=== PATIENT | female | born 1995 | race Caucasian/White ===

== ENCOUNTER 2017-11-25 19:04 | Emergency (ER) | payer OTHER ==
[2017-11-25 19:59] VITALS: TEMP 98.3
[2017-11-25] MEDS ORDERED: Iohexol 240 (50 ml) PO ONE (21:13)
[2017-11-25] MEDS ORDERED: Sodium Chloride 0.9% 1,000 ML IV STA (21:13)
--- NOTE | 2017-11-25 21:16 | ED PDOC ---
HPI: Abdomen Time Seen by Provider: 11/25/17 21:06 Chief Complaint (Nursing): Abdominal Pain Chief Complaint (Provider): abdominal pain History Per: Patient History/Exam Limitations: no limitations Onset/Duration Of Symptoms: Days (10), Waxing/Waning Current Symptoms Are (Timing): Still Present Location Of Pain/Discomfort: RLQ, LLQ, Suprapubic Quality Of Discomfort: Cramping Additional Complaint(s): 22 y/o female presents for evaluation of intermittent lower abdominal cramping x 10 days. Patient states she was seen at an Urgent Care and had blood work and and abdomen/pelvis ultrasound which showed some free fluid in the pelvis which she was told could have been a ruptured cyst. Patient states pain persists, with associated fever 3 day ago, and pale color stool today and when she told the doctor she was still having pain they said she should come to the ED for further evaluation. Denies headache, dizziness, nausea/vomiting, cough, congestion, chest pain, shortness of breath, urinary symptoms, vaginal bleeding/ discharge, recent travel, sick contacts. Past Medical History Reviewed: Historical Data, Nursing Documentation, Vital Signs Vital Signs: Last Vital Signs Temp 98.3 F 11/25/17 19:51 Pulse 84 11/25/17 19:51 Resp 18 11/25/17 19:51 BP 119/95 H 11/25/17 19:51 Pulse Ox 98 11/26/17 01:02 - Medical History PMH: No Chronic Diseases - Surgical History Surgical History: No Surg Hx - Family History Family History: States: No Known Family Hx - Living Arrangements Living Arrangements: With Family - Home Medications Home Medications: Ambulatory Orders Medication Instructions Recorded Polyethylene Glycol 3350 [Miralax] 17 gm PO DAILY PRN #7 [email or web address] 11/26/17 - Allergies Allergies/Adverse Reactions: Allergies Allergy/AdvReac Type Severity Reaction Status Date / Time No Known Allergies Allergy Verified 11/25/17 19:59 Review of Systems ROS Statement: Except As Marked, All Systems Reviewed And Found Negative Gastrointestinal: Positive for: Abdominal Pain Physical Exam - Reviewed Nursing Documentation Reviewed: Yes Vital Signs Reviewed: Yes - Physical Exam Appears: Positive for: Well, Non-toxic, No Acute Distress Head Exam: Positive for: ATRAUMATIC, NORMAL INSPECTION, NORMOCEPHALIC Skin: Positive for: Normal Color Eye Exam: Positive for: Normal appearance ENT: Positive for: Normal ENT Inspection Cardiovascular/Chest: Positive for: Regular Rate, Rhythm Respiratory: Positive for: Normal Breath Sounds Gastrointestinal/Abdominal: Positive for: Bowel Sounds, Soft, Tenderness (LLQ) Back: Positive for: Normal Inspection Extremity: Positive for: Normal ROM Neurologic/Psych: Positive for: Alert, Oriented - Laboratory Results Result Diagrams: 11/25/17 22:05 11/25/17 22:05 - ECG O2 Sat by Pulse Oximetry: 98 - Progress ED Course And Treament: labs, urine, CT abd/pelvis EXAM: CT Abdomen and Pelvis With Intravenous Contrast EXAM DATE/TIME: 11/25/2017 9:13 PM CLINICAL HISTORY: 22 years old, female; Pain; Abdominal pain; Localized; Lower; Additional info: Lower abdominal pain TECHNIQUE: Axial computed tomography images of the abdomen and pelvis with intravenous contrast. All CT scans at this facility use one or more dose reduction techniques, viz.: automated exposure control; ma/kV adjustment per patient size (including targeted exams where dose is matched to indication; i.e. head); or iterative reconstruction technique. Coronal and sagittal reformatted images were created and reviewed. CONTRAST: 90 mL of [id number] administered intravenously. COMPARISON: There are no prior studies for comparison. FINDINGS: Lower thorax: Heart size is normal. There is minimal scarring at the lung bases. There is a small hiatal hernia ABDOMEN: Liver: unremarkable Gallbladder and bile ducts: unremarkable Pancreas: unremarkable Spleen: unremarkable Adrenals: unremarkable Kidneys and ureters: unremarkable Stomach and bowel: Stomach is incompletely distended. Rotation is normal. Small bowel is distended. There air-fluid levels throughout the small bowel. There is contrast in the distal small bowel. Ileocecal region is unremarkable. Appendix and terminal ileum are unremarkable.There is a moderately large amount of stool in the colon. PELVIS: Appendix: See stomach and bowel Bladder: unremarkable Reproductive: Uterus and adnexal structures are unremarkable. ABDOMEN and PELVIS: Intraperitoneal space: There is moderate fluid in the cul-de-sac.There is no free air. Bones/joints: There are no acute osseous abnormalities. Soft tissues: unremarkable Vasculature: Vascular structures are unremarkable. Lymph nodes: There is no pathologic adenopathy. IMPRESSION: No acute solid visceral abnormality; constipation; mildly dilated small bowel possibly due to constipation; moderate free fluid in the pelvis, physiologic versus recent cyst rupture Additional nonemergent findings as described above. Thank you for allowing us to participate in the care of your patient. Patient educated on findings, discharged with rx Miralax. Advised follow up PMD and Dungeon [facility] Return precautions given Disposition - Clinical Impression Clinical Impression: Abdominal pain, Constipation, Free fluid in pelvis - Patient ED Disposition Is Patient to be Admitted: No Counseled Patient/Family Regarding: Studies Performed, Diagnosis, Need For Followup, Rx Given - Disposition Referrals: [facility] [Outside] Arina Jernigan MD [Staff Provider] - Disposition: Routine/Home Disposition Time: 01:40 Condition: IMPROVED Prescriptions: Polyethylene Glycol 3350 [Miralax] 17 gm PO DAILY PRN #7 [email or web address] PRN Reason: Constipation Instructions: Constipation in Adults, Acute Abdomen (Belly Pain), Adult (DC) Forms: [facility] ([place]), [facility] ED School/Work Excuse
[2017-11-25] MEDS ORDERED: Iohexol 240 (50 ml) ONE (21:31)
[2017-11-25 22:08] LABS: BASO % 0.8 % (0.0-2.0); EOS # 0.1 K/uL (0.0-0.7); EOS % 1.3 % (0.0-4.0); LYMPH # 1.4 K/uL (1.0-4.3); LYMPH % 34.7 % (20.0-40.0); MEAN CELL VOLUME 83.8 fl (81.0-99.0); MEAN CORPUSCULAR HEMOGLOBIN 27.9 pg (27.0-31.0); MEAN CORPUSCULAR HGB CONC 33.2 g/dL (33.0-37.0); MEAN PLATELET VOLUME 9.2 fl (7.2-11.7); MONO # 0.5 K/uL (0.0-0.8); NEUT # 2.1 K/uL (1.8-7.0); NEUT % 51.2 % (50.0-75.0); NRBC % 0.1 % (0.0-0.0); RBC 4.66 Mil/uL (3.80-5.20); RED CELL DISTRIBUTION WIDTH 13.6 % (11.5-14.5); WHITE BLOOD COUNT 4.1 K/uL (4.8-10.8)
[2017-11-25 22:20] LABS: ALB/GLOB RATIO 1.2 (1.0-2.1); ALBUMIN 4.7 g/dL (3.5-5.0); ALT/SGPT 45 U/L (9-52); AST/SGOT 46 U/L (14-36); BLOOD UREA NITROGEN 14 mg/dl (7-17); CALCIUM 9.4 mg/dL (8.4-10.2); GFR AFRICAN-AMERICAN > 60; GFR NON-AFRICAN AMERICAN > 60; LIPASE 38 U/L (23-300)
[2017-11-25] MEDS ORDERED: Iohexol 300 100 ML IJ ONE (23:27)
[2017-11-25] MEDS ORDERED: Sodium Chloride 0.9% 100 ML ONE (23:27)
--- NOTE | 2017-11-26 00:58 | CT ---
EXAM: CT Abdomen and Pelvis With Intravenous Contrast EXAM DATE/TIME: 11/25/2017 9:13 PM CLINICAL HISTORY: 22 years old, female; Pain; Abdominal pain; Localized; Lower; Additional info: Lower abdominal pain TECHNIQUE: Axial computed tomography images of the abdomen and pelvis with intravenous contrast. All CT scans at this facility use one or more dose reduction techniques, viz.: automated exposure control; ma/kV adjustment per patient size (including targeted exams where dose is matched to indication; i.e. head); or iterative reconstruction technique. Coronal and sagittal reformatted images were created and reviewed. CONTRAST: 90 mL of administered intravenously. COMPARISON: There are no prior studies for comparison. FINDINGS: Lower thorax: Heart size is normal. There is minimal scarring at the lung bases. There is a small hiatal hernia ABDOMEN: Liver: unremarkable Gallbladder and bile ducts: unremarkable Pancreas: unremarkable Spleen: unremarkable Adrenals: unremarkable Kidneys and ureters: unremarkable Stomach and bowel: Stomach is incompletely distended. Rotation is normal. Small bowel is distended. There air-fluid levels throughout the small bowel. There is contrast in the distal small bowel. Ileocecal region is unremarkable. Appendix and terminal ileum are unremarkable.There is a moderately large amount of stool in the colon. PELVIS: Appendix: See stomach and bowel Bladder: unremarkable Reproductive: Uterus and adnexal structures are unremarkable. ABDOMEN and PELVIS: Intraperitoneal space: There is moderate fluid in the cul-de-sac.There is no free air. Bones/joints: There are no acute osseous abnormalities. Soft tissues: unremarkable Vasculature: Vascular structures are unremarkable. Lymph nodes: There is no pathologic adenopathy. IMPRESSION: No acute solid visceral abnormality; constipation; mildly dilated small bowel possibly due to constipation; moderate free fluid in the pelvis, physiologic versus recent cyst rupture Additional nonemergent findings as described above.
[2017-11-26 02:06] VITALS: BP 100/61; PULSE 65; RESP 16; O2SAT 100
== END 2017-11-26 02:19 | disposition home or self-care (01) ==
LOC: H.ER 19:04
DX: R10.9 Unspecified abdominal pain (principal); K59.00 Constipation, unspecified; N94.89 Other specified conditions associated with female genital organs and menstrual cycle
CPT/HCPCS: 74177; 80053; 81025; 83690; 85025; 96360; 99284; J7040; Q9966; Q9967